=== PATIENT | male | born 1970 | race Caucasian/White ===

== ENCOUNTER 2018-12-28 03:47 | Emergency (ER) | payer MEDICARE, MEDICAID ==
[~2018-12-28] VITALS: Ht 182.9 cm; Wt 102.6 kg
[~2018-12-28 03:47] MED LIST: DIVA250T4; PHEN100T2
[2018-12-28 03:49] VITALS: BP 132/87
== END 2018-12-28 04:16 | disposition home or self-care (01) ==
LOC: ED 04:00
DX: G40.909 Epilepsy, unspecified, not intractable, without status epilepticus (principal); Z76.0 Encounter for issue of repeat prescription; Z86.39 Personal history of other endocrine, nutritional and metabolic disease
CPT/HCPCS: 99281